=== PATIENT | male | born 1930 | race Caucasian/White ===

== ENCOUNTER → 2017-04-12 09:11 | Outpatient (CLI) | payer MEDICARE ==
[2017-04-12 09:48] LABS: BASOPHILS 0.5 % (0-2); EOSINOPHILS 5.5 % (0-7); HEMATOCRIT 40.2 % (42.0-54.0); HEMOGLOBIN 13.3 g/dL (13.5-17.5); IMMATURE GRANULOCYTES 0.2 % (0-5); LYMPHOCYTES 15.5 % (15-50); MCHC 33.1 g/dL (31.0-37.0); MCV 96.9 fL (80.0-100.0); MEAN PLATELET VOLUME 10.5 fL (7.4-10.4); MONOCYTES 9.7 % (2-11); NEUTROPHILS 68.6 % (40-80); PLATELET COUNT 233 10x3/uL (130-400); RBC 4.15 10x6/uL (4.20-6.10); RDW 13.2 % (11.5-14.5); WBC 5.7 10x3/uL (4.8-10.8)
[2017-04-12 10:17] LABS: ALBUMIN 3.4 g/dL (3.4-5.0); ANION GAP 11.7 mmol/L (8-16); BILIRUBIN - TOTAL 0.55 mg/dL (0.2-1.3); CARBON DIOXIDE 27.5 mmol/L (21.0-32.0); CHOL - HDL RATIO 3.2 ratio (2.3-4.9); CREATININE - SERUM 1.5 mg/dL (0.6-1.3); LDL-HDL RATIO 1.9 ratio (1.5-3.5); POTASSIUM - SERUM 4.2 mmol/L (3.5-5.1); PROTEIN - SERUM 6.8 g/dL (6.4-8.2); THYROID STIMULATING HORMONE 1.41 uIU/mL (0.36-3.74)
== END | disposition home or self-care (01) ==
LOC: D.LAB 09:11
PROVIDERS: Family Medicine
DX: D50.9 Iron deficiency anemia, unspecified (principal); I10 Essential (primary) hypertension; Z13.6 Encounter for screening for cardiovascular disorders

== ENCOUNTER → 2017-06-15 08:58 | Outpatient (CLI) | payer MEDICARE ==
[~2017-06-15] VITALS: Ht 175.3 cm; Wt 69.9 kg
[2017-06-15 15:00] VITALS: Ht 175.3 cm; Wt 69.9 kg
== END | disposition home or self-care (01) ==
LOC: D.FANS 08:58
DX: N18.3 Chronic kidney disease, stage 3 (moderate) (principal)

== ENCOUNTER → 2017-07-19 09:46 | Outpatient (CLI) | payer MEDICARE ==
[2017-06-15 15:00] VITALS: BMI 22.7
[2017-07-19 10:43] LABS: CREATININE - SERUM 1.4 mg/dL (0.6-1.3)
== END | disposition home or self-care (01) ==
LOC: D.CT 07-16 15:30
PROVIDERS: Family Medicine
DX: K59.09 Other constipation (principal)

== ENCOUNTER 2018-04-15 14:54 | Emergency (ER) | payer MEDICARE ==
[~2018-04-15] VITALS: Ht 175.3 cm; Wt 62.7 kg
[2018-04-15 14:57] VITALS: Ht 175.3 cm; Wt 62.7 kg
[2018-04-15] MEDS ORDERED: NORVASC5 MG PO (14:58)
[2018-04-15] MEDS ORDERED: CATAPRES0.1 MG PO (14:59)
[2018-04-15] MEDS ORDERED: CARDURA2 MG PO (14:59)
[2018-04-15] MEDS ORDERED: NEURONTIN 400400 MG PO (14:59)
[2018-04-15] MEDS ORDERED: VITAMIN B-150 MG PO (14:59)
[2018-04-15] MEDS ORDERED: ATIVAN1 MG PO (15:00)
[2018-04-15] MEDS ORDERED: MELATONIN 3 MG1 TAB PO (15:00)
[2018-04-15] MEDS ORDERED: LOVASTATIN20 MG PO (15:00)
[2018-04-15] MEDS ORDERED: OMEPRAZOLE20 M1 PO (15:01)
[2018-04-15] MEDS ORDERED: NITROSTAT0.4 MG SL (15:01)
[2018-04-15] MEDS ORDERED: PROBIOTIC1 EAC1 PO (15:01)
[2018-04-15] MEDS ORDERED: SLOW RELEASE I160 MG PO (15:01)
[2018-04-15] MEDS ORDERED: ALDACTONE25 MG PO (15:02)
[2018-04-15 15:28] LABS: BASOPHILS 0.9 % (0-2); EOSINOPHILS 2.7 % (0-7); HEMOGLOBIN 11.3 g/dL (13.5-17.5); IMMATURE GRANULOCYTES 0.2 % (0-5); LYMPHOCYTES 13.5 % (15-50); MCH 31.9 pg (26.0-34.0); MCHC 33.2 g/dL (31.0-37.0); MEAN PLATELET VOLUME 9.3 fL (7.4-10.4); MONOCYTES 12.6 % (2-11); NEUTROPHILS 70.1 % (40-80); PLATELET COUNT 200 10x3/uL (130-400); RBC 3.54 10x6/uL (4.20-6.10); RDW 13.3 % (11.5-14.5); WBC 5.6 10x3/uL (4.8-10.8)
[2018-04-15 15:52] LABS: APTT 27.3 SECONDS (22.8-39.4); INR 1.01 (0.85-1.17); PROTIME 12.9 SECONDS (11.6-15.0)
[2018-04-15 15:56] LABS: ALBUMIN 3.4 g/dL (3.4-5.0); BILIRUBIN - TOTAL 0.41 mg/dL (0.2-1.3); CARBON DIOXIDE 31.3 mmol/L (21.0-32.0); CREATININE - SERUM 1.2 mg/dL (0.6-1.3); POTASSIUM - SERUM 4.3 mmol/L (3.5-5.1); PROTEIN - SERUM 6.4 g/dL (6.4-8.2)
[2018-04-15 16:15] LABS: % SATURATION 26 % (15-55); IRON 65 ug/dl (35-150); TOTAL IRON BIND CAPACITY 250 ug/dl (260-445); UNSAT IRON BIND CAPACITY 185 ug/dl (150-375)
[2018-04-15 17:05] VITALS: BP 169/83
[2018-04-18 12:12] LABS: FOLATE (FOLIC ACID) - SERUM 18.1 ng/mL (>3.0)
== END 2018-04-15 17:09 | disposition home or self-care (01) ==
LOC: D.ER 14:54
PROVIDERS: Emergency Medicine
DX: D64.9 Anemia, unspecified (principal); I12.9 Hypertensive chronic kidney disease with stage 1 through stage 4 chronic kidney disease, or unspecified chronic kidney disease; N18.3 Chronic kidney disease, stage 3 (moderate); Z85.46 Personal history of malignant neoplasm of prostate

== ENCOUNTER 2018-09-16 08:31 | Observation (INO) | payer MEDICARE ==
[~2018-09-16] VITALS: Ht 175.3 cm; Wt 63.5 kg
--- NOTE | ~2018-09-16 | HP ---
PATIENT: NICHOLE DELGADO MEDICAL RECORD: [id number] ACCOUNT: [id number] LOCATION:D.MS [id number] : 30 ADMISSION DATE: 09/16/18 PCP: BOB DELUCA DO HISTORY AND PHYSICAL EXAMINATION DATE OF ADMISSION: 09/16/2018 CHIEF COMPLAINT: Constipation. HISTORY: This is an 87-year-old white male, who is followed by Dr. Deluca, who does not come into the hospital. He is complaining of constipation for the last 10 days. It really got worse in the last day or two. He has had some mild abdominal pain. He has had constipation issues for at least 3 years since he had a colonoscopy done at [facility]. He has had no nausea or vomiting. No fever or chills. No chest pain or shortness of breath. He takes several medicines to help with bowel movements and gives himself warm water enemas occasionally. Upon presentation into the Emergency Department, his potassium was low at 2.9. Rest of his lab looked okay. Acute abdominal series showed large amount of fecal material in the colon. He is admitted. PAST MEDICAL AND SURGICAL HISTORY: Hypertension, peripheral neuropathy, chronic kidney disease stage III, history of prostate cancer. DRUG ALLERGIES: None known. HABITS: No tobacco, alcohol, or drugs. SOCIAL HISTORY: He is and retired. HOME MEDICATIONS: Include amlodipine 5 mg once a day, thiamine 50 mg 3 days a week, Cardura 2 mg daily p.r.n. elevated blood pressure, gabapentin 400 mg at bedtime, lorazepam 1 mg at bedtime, lovastatin 20 mg once a day, melatonin 3 mg at bedtime, nitroglycerin 0.4 mg sublingually p.r.n. chest pain, omeprazole 20 mg twice a day, probiotic 2 tablets a day, ferrous sulfate 160 mg once a day, MiraLax 1 scoop in 8 ounces of fluids once a day. REVIEW OF SYSTEMS: GENERAL: No major weight changes. HEENT: No particular sinus or allergy problems. RESPIRATORY: No history of asthma or emphysema. CARDIAC: He has had some anginal symptoms in the past. GASTROINTESTINAL: History of constipation. He had an ulcer diagnosed a few years ago. GENITOURINARY: History of prostate cancer. MUSCULOSKELETAL: Some arthritic aches and pains. NEUROLOGIC: He has peripheral neuropathy. No migraines. No seizures. PSYCHIATRIC: No depression or melancholia. PHYSICAL EXAMINATION: VITAL SIGNS: Temperature is 97.3, pulse 68, respirations 20, blood pressure 152/71, O2 sat 99%. GENERAL: He does not appear in acute distress. He seems to be comfortable in a hospital bed. SKIN: Warm and dry. HEENT: Grossly within normal limits. HISTORY AND PHYSICAL [id number] NICHOLE DELGADO NECK: Supple. No JVD or bruit. HEART: Regular rate and rhythm without murmur. LUNGS: Clear. ABDOMEN: Soft. Mildly distended. No significant tenderness. No guarding, no rebound, no mass. EXTREMITIES: No edema. LABORATORY DATA: CBC with a white count of 6100, hemoglobin 13, hematocrit 39, normal differential. Urinalysis is normal. Basic metabolic panel is okay except potassium is 2.9. Liver functions were all normal. Troponin is normal. Amylase and lipase are both normal. Acute abdominal series showed large amount of fecal material. ASSESSMENT: 1. Constipation. 2. Hypokalemia. 3. Hypertension. PLAN: We will admit, give him fluids. He has had soapsuds enema in the ER, another one has been ordered. Given him some mag citrate. We will see how he does overnight to further recommendations as warranted. TRANSINT:[id number] Voice Confirmation ID: [id number] DOCUMENT ID: [id number] JASON WELLS MD CC: [id number] DICTATION DATE: 09/21/182319 BEHAVIORAL HEALTH SPECIALIST: 09/22/18 0043 DIS IN 09/17/18 [place] [id number] [place] [id number]
[~2018-09-16 08:31] MED LIST: ALDACTONE25 MG PO; ATIVAN1 MG PO; CARDURA2 MG PO; CATAPRES0.1 MG PO; LOVASTATIN20 MG PO; MELATONIN 3 MG1 TAB PO; NEURONTIN 400400 MG PO; NITROSTAT0.4 MG SL; NORVASC5 MG PO; OMEPRAZOLE20 M1 PO; PROBIOTIC1 EAC1 PO; SLOW RELEASE I160 MG PO; VITAMIN B-150 MG PO
[2018-09-16 09:32] LABS: ALBUMIN 3.2 g/dL (3.4-5.0); ALKALINE PHOSPHATASE 52 U/L (46-116); ALT (SGPT) 17 U/L (10-68); AMYLASE - SERUM 66 U/L (25-115); BASOPHILS 0.8 % (0-2); BILIRUBIN - TOTAL 0.59 mg/dL (0.2-1.3); CALC OSMOLALITY 276 mosm/kg (275-300); CALCIUM 8.8 mg/dL (8.5-10.1); CARBON DIOXIDE 32.3 mmol/L (21.0-32.0); CHLORIDE - SERUM 99 mmol/L (98-107); CREATININE - SERUM 1.3 mg/dL (0.6-1.3); EOSINOPHILS 5.4 % (0-7); GLUCOSE 108 mg/dL (74-106); HEMATOCRIT 39.2 % (42.0-54.0); IMMATURE GRANULOCYTES 0.2 % (0-5); LIPASE 164 U/L (73-393); LYMPHOCYTES 20.4 % (15-50); MCHC 33.2 g/dL (31.0-37.0); MCV 93.6 fL (80.0-100.0); MEAN PLATELET VOLUME 9.7 fL (7.4-10.4); MONOCYTES 9.1 % (2-11); NEUTROPHILS 64.1 % (40-80); PLATELET COUNT 216 10x3/uL (130-400); PROTEIN - SERUM 6.6 g/dL (6.4-8.2); RBC 4.19 10x6/uL (4.20-6.10); RDW 13.3 % (11.5-14.5); SODIUM 137 mmol/L (136-145); UREA NITROGEN 18 mg/dL (7-18); WBC 6.1 10x3/uL (4.8-10.8); eGFR NON AFRICAN AMERICAN 55 mL/min (90-120)
[2018-09-16 09:37] LABS: POTASSIUM - SERUM 2.9 mmol/L (3.5-5.1); TROPONIN-I < 0.017 ng/mL (0.000-0.060)
--- NOTE | 2018-09-16 09:38 | NUR ---
CRITICAL LOW POTASSIUM OF 2.9 CALLED BY [employer] TECH. NOTIFIED DR. MUÑOZ.
[2018-09-16 10:28] LABS: APPEARANCE CLEAR (CLEAR); BILIRUBIN NEGATIVE (NEGATIVE); COLOR YELLOW (YELLOW); GLUCOSE NEGATIVE (NEGATIVE); KETONE NEGATIVE (NEGATIVE); NITRITE NEGATIVE (NEGATIVE); PROTEIN NEGATIVE (NEGATIVE)
[2018-09-16 11:00] VITALS: BP 154/60
--- NOTE | 2018-09-16 11:31 | NUR ---
BLANKET PROVIDED TO PATIENT AT THIS TIME.
--- NOTE | 2018-09-16 13:40 | NUR ---
BEDSIDE COMMODE BROUGHT TO PATIENT'S BEDSIDE. BOWEL MOVEMENT PRESENT IN BEDSIDE COMMODE AT THIS TIME. PT IN NO ACUTE DISTRESS AT THIS TIME. WILL CONT TO MONITOR FOR CHANGES.
[2018-09-16 17:47] VITALS: BP 164/80; BMI 20.7
[2018-09-16 20:00] VITALS: BP 159/77
--- NOTE | 2018-09-16 20:30 | NUR ---
RECEIVED REPROT, ASSUMED CARE, A&O, DENIES NEEDS, NO S/S OF DISTRESS NOTED, CALL LIGHT IN REACH, BED LOWEST POSITION, IV INFUSING TO L AC PATENT, WILL CONTINUE POC
--- NOTE | 2018-09-16 20:50 | NUR ---
PT REFUSED MIDNIGHT VITALS STATED HE JUST WANTS LEFT ALONE
[2018-09-17 03:00] VITALS: BP 154/74
--- NOTE | 2018-09-17 04:30 | NUR ---
I have reviewed this patient and I concur with the Shift Assessment completed by the Licensed Practical Nurse today this shift.
[2018-09-17 06:37] LABS: BASOPHILS 0.8 % (0-2); EOSINOPHILS 8.1 % (0-7); HEMATOCRIT 35.7 % (42.0-54.0); HEMOGLOBIN 11.9 g/dL (13.5-17.5); IMMATURE GRANULOCYTES 0.2 % (0-5); LYMPHOCYTES 24.9 % (15-50); MCH 31.2 pg (26.0-34.0); MCHC 33.3 g/dL (31.0-37.0); MCV 93.7 fL (80.0-100.0); MONOCYTES 13.4 % (2-11); NEUTROPHILS 52.6 % (40-80); PLATELET COUNT 204 10x3/uL (130-400); RBC 3.81 10x6/uL (4.20-6.10); RDW 13.2 % (11.5-14.5); WBC 5.3 10x3/uL (4.8-10.8)
[2018-09-17 07:17] LABS: ANION GAP 9.1 mmol/L (8-16); CALCIUM 8.2 mg/dL (8.5-10.1); CARBON DIOXIDE 31.9 mmol/L (21.0-32.0); CREATININE - SERUM 1.1 mg/dL (0.6-1.3); MAGNESIUM - SERUM 2.2 mg/dL (1.8-2.4); PHOSPHOROUS 2.8 mg/dL (2.5-4.9)
[2018-09-17 09:07] VITALS: BP 154/68
[2018-09-17 10:34] VITALS: Ht 175.3 cm; Wt 63.5 kg
--- NOTE | 2018-09-17 10:44 | NUR ---
I have reviewed this patient and I concur with the Shift Assessment completed by the Licensed Practical Nurse today this shift.
--- NOTE | 2018-09-17 11:44 | NUR ---
FLEET ENEMA GIVEN PER ORDER. TOLERATED WELL. VERBALIZED UNDERSTANDING OF NEED FOR ENEMA. DENIES ANY CURRENT NEEDS OR DISCOMFORTS, BED LOWERED AND LOCKED, CALL LIGHT WITHIN REACH. CPOC
[2018-09-17] MEDS ORDERED: MIRALAX17 GM PO (13:14)
[2018-09-17 14:16] VITALS: BP 155/73
--- NOTE | 2018-09-17 15:47 | NUR ---
DISCHARGE INSTRUCTIONS GIVEN. VERBALIZES UNDERSTANDING. DISCONTINUED IV TO LEFT FOREARM, DENIES ANY CONCERNS OR QUESTIONS AT CURRENT TIME. TRANSPORTED OFF UNIT VIA WHEELCHAIR.
--- NOTE | 2018-09-19 16:57 | MORECARE ---
CASE MANAGEMENT DISCHARGE SUMMARY PATIENT: NICHOLE DELGADO UNIT: [id number] ADM DATE: 09/16/18 AGE: 87 : 30 SEX: M ROOM/BED: D.2235 AUTHOR: ANISH VILLAGRAN PHYSICIAN: REFERRING PHYSICIAN: JASON WELLS MD DATE OF SERVICE: 09/19/18 Discharge Plan Patient Name: NICHOLE DELGADO [facility] [facility] 1930 Planned Disposition: Anticipated Discharge Date: Discharge Date: 09/17/2018 Expected LOS: 0 Initial Reviewer: [email or web address] Initial Review Date: 09/19/2018 Generated: 09/19/18 5:57 pm Patient Name: NICHOLE DELGADO Page 91652 at 1657 All edits/amendments must be made on the electronic document DICTATION DATE: 09/19/181656 EMAIL MARKETER: DANIEL 09/19/181656 RPT#: [id number] DC DATE:09/17/18 STATUS: DIS IN [facility] [address] [place] [address] END OF REPORT
== END 2018-09-17 15:48 | disposition home or self-care (01) ==
LOC: D.ER 08:31 → D.MS 14:10 → OBSVTIME 14:10 → D.MS 09-17 15:48
PROVIDERS: Family Medicine; ADMIT Family Medicine; ATTEND Family Medicine
DX: K59.04 Chronic idiopathic constipation (principal); I12.9 Hypertensive chronic kidney disease with stage 1 through stage 4 chronic kidney disease, or unspecified chronic kidney disease; N18.3 Chronic kidney disease, stage 3 (moderate)

== ENCOUNTER 2018-10-21 12:23 | Emergency (ER) | payer MEDICARE ==
[~2018-10-21] VITALS: Ht 175.3 cm; Wt 65.9 kg
[~2018-10-21 12:23] MED LIST changes: +MIRALAX17 GM PO
[2018-10-21 12:25] VITALS: Ht 175.3 cm; Wt 65.9 kg
[2018-10-21 12:43] LABS: BASOPHILS 0.5 % (0-2); EOSINOPHILS 3.2 % (0-7); HEMATOCRIT 38.8 % (42.0-54.0); HEMOGLOBIN 13.2 g/dL (13.5-17.5); IMMATURE GRANULOCYTES 0.2 % (0-5); LYMPHOCYTES 17.6 % (15-50); MCV 93.9 fL (80.0-100.0); MEAN PLATELET VOLUME 9.5 fL (7.4-10.4); MONOCYTES 10.2 % (2-11); NEUTROPHILS 68.3 % (40-80); PLATELET COUNT 216 10x3/uL (130-400); RBC 4.13 10x6/uL (4.20-6.10); RDW 13.1 % (11.5-14.5); WBC 6.5 10x3/uL (4.8-10.8)
[2018-10-21 12:54] LABS: ALBUMIN 3.5 g/dL (3.4-5.0); ALKALINE PHOSPHATASE 46 U/L (46-116); ALT (SGPT) 22 U/L (10-68); BILIRUBIN - TOTAL 0.43 mg/dL (0.2-1.3); CALC OSMOLALITY 274 mosm/kg (275-300); CALCIUM 8.8 mg/dL (8.5-10.1); CHLORIDE - SERUM 101 mmol/L (98-107); CREATININE - SERUM 1.4 mg/dL (0.6-1.3); GLUCOSE 102 mg/dL (74-106); POTASSIUM - SERUM 3.3 mmol/L (3.5-5.1); PROTEIN - SERUM 6.6 g/dL (6.4-8.2); SODIUM 136 mmol/L (136-145); UREA NITROGEN 20 mg/dL (7-18); eGFR NON AFRICAN AMERICAN 51 mL/min (90-120)
[2018-10-21 13:01] LABS: APTT 28.5 SECONDS (22.8-39.4); INR 0.99 (0.85-1.17); PROTIME 12.6 SECONDS (11.6-15.0)
[2018-10-21 13:13] LABS: CREATINE KINASE 34 UL (21-232); MAGNESIUM - SERUM 2.3 mg/dL (1.8-2.4); THYROID STIMULATING HORMONE 1.73 uIU/mL (0.36-3.74); TROPONIN-I < 0.017 ng/mL (0.000-0.060)
[2018-10-21 13:34] LABS: APPEARANCE CLEAR (CLEAR); COLOR YELLOW (YELLOW)
[2018-10-21 13:35] LABS: BILIRUBIN NEGATIVE (NEGATIVE); GLUCOSE NEGATIVE (NEGATIVE); KETONE NEGATIVE (NEGATIVE); NITRITE NEGATIVE (NEGATIVE); PROTEIN NEGATIVE (NEGATIVE); UROBILINOGEN NORMAL (NORMAL)
[2018-10-21 15:20] VITALS: BP 177/75
== END 2018-10-21 15:21 | disposition home or self-care (01) ==
LOC: D.ER 12:23
PROVIDERS: Family Medicine
DX: E86.0 Dehydration (principal)

== ENCOUNTER 2019-02-19 13:44 | Emergency (ER) | payer MEDICARE ==
[~2019-02-19] VITALS: Ht 175.3 cm; Wt 68.2 kg
[2019-02-19 13:49] VITALS: Ht 175.3 cm; Wt 68.2 kg
[2019-02-19] MEDS ORDERED: MODURETIC 5/501 TAB PO (13:52)
[2019-02-19] MEDS ORDERED: COLACE100 MG PO (13:53)
[2019-02-19 14:49] VITALS: BP 132/68
== END 2019-02-19 14:51 | disposition home or self-care (01) ==
LOC: D.ER 13:44
DX: K59.00 Constipation, unspecified (principal)

== ENCOUNTER → 2019-04-24 09:49 | Outpatient (CLI) | payer MEDICARE ==
[2019-02-19 13:49] VITALS: BMI 22.2
[~2019-04-24 09:49] MED LIST changes: +ALENDRONATE SOD10 MG PO; +COLACE100 MG PO; +K-TAB10 MEQ PO; +MODURETIC 5/501 TAB PO; +VITAMIN B-12500 MCG PO
== END | disposition home or self-care (01) ==
LOC: D.HCCARDIO 09:30
PROVIDERS: ATTEND Internal Medicine Cardiovascular Disease
DX: R06.02 Shortness of breath (principal)

== ENCOUNTER 2019-05-03 11:47 | Outpatient (CLI) | payer MEDICARE ==
[~2019-05-03] VITALS: Ht 175.3 cm; Wt 68.2 kg
--- NOTE | ~2019-05-03 | HEMODYNAMI ---
PATIENT:NICHOLE DELGADO MEDICAL RECORD: [id number] : 30 [facility]ATION:[facility] ADMISSION DATE: 05/03/19 Generatedon:05/03/201914:35 Patient name: NICHOLE DELGADO Patient #: [id number] : 1930 Date of study: 05/03/2019 Page: Of Hemodynamic Procedure Report Patient Data Patient Demographics Procedure consent was obtained First Name: NICHOLE Gender: Male Last Name: SANDY : 1930 Middle Initial: WALTER Age: 88 year(s) Patient #: [id number] Race: Unknown SSN: [id number] Additional ID: [id number] Contact details Address: [address] [place] [address] [address] State: [place] City: [place] Zip code: [address] Past Medical History Allergies: No known allergies Admission Admission Data Admission Date: 05/03/2019 Admission Time: 11:47 Arrival Date: 05/03/2019 Arrival Time: 0:00 Insurance Payor: Medicare [facility] #: [id number] Height (in.): 68.9 BSA: 1.83 (m2) Height (cm.): 175 BMI: 22.2 (kg/m2) Weight (lbs.): 149.92 Weight (kg.): 68 Lab Results Lab Result Date: 05/03/2019 Lab Result Time: 0:00 Biochemistry Name Units Result Min Max BUN mg/dl 16 --(---*)-- 7 18 Creatinine mg/dl 1.1 --(--*-)-- 0.6 1.3 eGFR ml/min 67.17991 *-(----)-- 90 120 NONAFRICAN CBC Name Units Result Min Max Hemoglobin g/dl 13.1 -*(----)-- 13.5 17.5 Procedure Procedure Types Cath Procedure Diagnostic Procedure LHC LH w/Coronaries Sedation Charges Moderate Sedation up to 30 minutes Procedure Description Procedure Date Procedure Date: 05/03/2019 Procedure Start Time: 14:08 Procedure End Time: 14:33 Procedure Staff Name Function Mingo Aly MD Performing Physician Grecia Aguirre RT Monitor Renae Michelle RN Nurse Qi Conley RT Scrub Jeannine Cohen RT Scrub Procedure Data Cath Procedure Fluoroscopy Diagnostic fluoroscopy Total fluoroscopy Time: 4.2 time: 4.2 min min Diagnostic fluoroscopy Total fluoroscopy dose: 690 dose: 690 mGy mGy Contrast Material Contrast Material Type Amount (ml) Isovue 300 98 Entry Location Entry Primary Successful Side Size Upsize Upsize Entry Closure Almendarez ccessful Closure Location (Fr) 1 (Fr) 2 (Fr) Remarks Device Remarks Radial Right 6 Fr Mechanical artery Short Compression Femoral Right 5 Fr Exoseal artery Estimated blood loss: 10 ml Diagnostic catheters Device Type Used For End Catheter Placement DIAGNOSTIC Luís 110cm Procedure 5Fr catheter ([id number]) MULTIPACK JL 4.0 5Fr Procedure catheter MULTIPACK 3DRC 5Fr Procedure catheter MULTIPACK Pigtail 5 Fr Ventriculography catheter Procedure Complications No complications Procedure Medications Medication Administration Route Dosage Oxygen etCO2 Nasal cannula 2 l/min Lidocaine 2% added to field 20 Heparin Flush Bag added to field 2 bags (1000units/500ml NS) 0.9% NaCl I.V. 100 ml/hr Versed I.V. 1 mg Fentanyl I.V. 50 mcg Versed I.V. 1 mg Fentanyl I.V. 50 mcg Radial Cocktail I.A. 1 syringe (Verapamil 2mg/Nitro 400mcg/Heparin 1500units) Hemodynamics Rest BSA: 1.83 (m2) HGB: 13.1 (g/dl) O2 Consumption: Estimated: 202.09 (ml/min) O2 Co nsumption indexed: Estimated:110.43 (ml/min/m) Heart Rate: 63 (bpm) Pressure Samples Time Site Value (mmHg) Purpose Heart Use Rate(bpm) 14:23 AO 134/6(48) Snapshot 66 Snapshots Pre Cath Intra NCS Post Cath Vital Signs Time Heart Resp SPO2 etCO2 NIBP (mmHg) Rhythm Pain Sedation Rate (ipm) (%) (mmHg) Status Level (bpm) 13:54:42 57 12 99 35.2 195/87(160) NSR 0 (11) 10(A) , No pain 13:59:15 63 17 98 36.7 189/80(157) NSR 0 (11) 10(A) , No pain 14:03:47 65 19 97 25.5 168/72(119) NSR 0 (11) 9(A) , No pain 14:08:12 60 15 97 42.7 157/75(109) NSR 0 (11) 9(A) , No pain 14:12:32 65 15 96 40.5 116/50(89) NSR 0 (11) 9(A) , No pain 14:16:42 64 17 96 39 118/60(89) NSR 0 (11) 9(A) , No pain 14:20:49 62 18 96 39.7 128/66(102) NSR 0 (11) 9(A) , No pain 14:24:59 68 19 96 39.7 134/68(97) NSR 0 (11) 9(A) , No pain 14:29:13 64 19 96 38.2 132/68(99) NSR 0 (11) 10(A) , No pain 14:33:29 64 11 97 35.9 139/60(114) NSR 0 (11) 10(A) , No pain Medications Time Medication Route Dose Verified Delivered Reason Notes Effectiveness by by 13:53:56 Oxygen etCO2 2 l/min Mingo Buffie used for Nasal Jermain Michelle RN procedure cannula 13:54:02 Lidocaine 2% added 20ml Mingo Mingo for local to vial Jermain Aly MD anesthetic field 13:54:09 Heparin Flush added 2 bags Mingo Mingo used for Bag to Jermain Aly MD procedure (1000units/500ml field NS) 13:54:16 0.9% NaCl I.V. 100 Mingo Buffie Per ml/hr Jermain Michelle RN physician 13:57:03 Versed I.V. 1 mg Mingo Buffie for sedation Jermain Michelle RN 13:57:09 Fentanyl I.V. 50 mcg Mingo Buffie for sedation Jermain Michelle RN 14:06:49 Versed I.V. 1 mg Mingo Buffie for sedation Jermain Michelle RN 14:06:52 Fentanyl I.V. 50 mcg Mingo Buffie for sedation Jermain Michelle RN 14:09:45 Radial Cocktail I.A. 1 Mingo Mingo for (Verapamil syringe Jermain Aly MD vasodilation 2mg/Nitro 400mcg/Heparin 1500units) Procedure Log Time Note 13:29:33 Arrival Date: 05/03/2019 12:00:00 AM 13:29:55 Insurance Payor : Medicare 13:30:03 Patient Height : 68.9 inches 13:30:06 Patient Weight : 149.92 lbs 13:31:14 Lab Result : Hemoglobin 13.1 g/dl 13:31:14 Lab Result : eGFR NONAFRICAN 67.60404 ml/min 13:31:14 Lab Result : BUN 16 mg/dl 13:31:14 Lab Result : Creatinine 1.1 mg/dl 13:31:20 Diagnostic Cath Status : Elective 13:32:07 Procedure Status Elective Heart Cath (OP). 13:32:10 Renae Michelle RN sent for patient. Start room use. 13:32:11 Time tracking: Regular hours (M-F 7:00 - 5:00) 13:32:15 Plan of Care:Hemodynamics will remain stable., Cardiac rhythm will remain stable., Comfort level will be maintained., Respiratory function will remain adequate., Patient/ family verbilizes understanding of procedure., Procedure tolerated without complication., Recovers from procedure without complications.. 13:32:26 Fire Safety Assessment: A--An alcohol-based skin anteseptic being used preoperatively., C--Open oxygen or nitrous oxide is being used., D--An ESU, laser, or fiber-optic light is being used. 13:32:34 2) 60-89 Mildly reduced kidney function, and other findings (as for stage 1) point to kidney disease. 13:33:15 Maximum allowable contrast dose (3.7 X eGFR X 0.75)185 ml. 13:33:57 H&P Date Dictated: 04/14/2019 Within 30 days and on chart.. 13:34:00 Pre-procedure instructions explained to patient. 13:42:17 Family in waiting room. 13:42:18 Patient NPO since Midnight. 13:42:28 Patient allergic to No known allergies 13:42:32 Is the patient allergic to Iodine/contrast media? No. 13:42:33 Was the patient premedicated? Yes 13:52:09 Patient received from Pre/Post Procedure Room to CCL 2 Alert and oriented. Tansferred to table in Supine position. 13:52:21 Signed procedure consent form obtained from patient. 13:52:22 Warm blankets applied, and bryant hugger turned on for patient comfort. 13:52:23 Correct patient and procedure confirmed by team. 13:52:24 ECG and BP/O2 sat monitors applied to patient. 13:52:24 Vital chart was started 13:52:27 Baseline sample Acquired. 13:52:31 Full Disclosure recording started 13:52:38 Is patient on blood thinner?No 13:52:41 Patient diabetic? No. 13:52:45 Snore? No 13:52:46 Sleep apnea? No 13:53:00 Sticks out tongue? Yes 13:53:20 Dentures? No ? 13:53:29 Patient pain scale 0/10 SOB. 13:53:38 IV patent on arrival in left forearm with 0.9% NaCl at [facility]. 13:53:43 Lab results completed and on chart. 13:53:56 Oxygen 2 l/min etCO2 Nasal cannula was administered by Renae Michelle RN; used for procedure; Verbal order read back and verified. 13:54:02 Lidocaine 2% 20ml vial added to field was administered by Mingo Aly MD; for local anesthetic; Verbal order read back and verified. 13:54:09 Heparin Flush Bag (1000units/500ml NS) 2 bags added to field was administered by Mingo Aly MD; used for procedure; Verbal order read back and verified. 13:54:16 0.9% NaCl 100 ml/hr I.V. was administered by Renae Michelle RN; Per physician; Verbal order read back and verified. 13:54:36 Stress Test: yes; abnormal inferior and lateral 13:54:40 Risk of Mortality: 1.3 13:54:43 Risk of blood transfusion: .4 13:54:47 Risk of AZAR: 2.7 13:54:52 Right Radial & Right Groin area was prepped with chlora-prep and draped in sterile fashion 13:55:55 Alarms reviewed by R. N. 13:55:55 Sharps counted by scrub and verified by R.N. 13:55:56 Physician paged 13:56:01 Physician arrived 13:56:02 --------ALL STOP TIME OUT------ 13:56:06 Final Timeout: patient, procedure, and site verified with staff and physician. All members of the team are in agreement. 13:56:13 Right Radial & Right Groin site verified by team. 13:57:03 Versed 1 mg I.V. was administered by Renae Michelle RN; for sedation; Verbal order read back and verified. 13:57:06 Physical assessment completed. ASA score P 3 - A patient with severe systemic disease as per Mingo Aly MD. 13:57:09 Fentanyl 50 mcg I.V. was administered by Renae Michelle RN; for sedation; Verbal order read back and verified. 13:57:14 Sedation plan: IV Moderate Sedation Medication:Versed, Fentanyl 13:58:23 Use device set Radial Dx or PCI 13:58:29 ACIST Syringe (09303) opened to sterile field. 13:58:29 Medline Cath Pack ([id number]) opened to sterile field. 13:58:29 Bag Decanter (2002S) opened to sterile field. 13:58:30 ACIST Hand Control (02247) opened to sterile field. 13:58:30 ACIST Manifold (21816) opened to sterile field. 13:58:34 MBrace Wrist Support ([id number]) opened to sterile field. 13:58:35 NEEDLE Cook 21G 4cm Radial (L48507) opened to sterile field. 13:58:37 EMERALD Guide Wire (094-256) opened to sterile field. 13:58:42 SHEATH 6FR RAIN (6632699) opened to sterile field. 14:06:49 Versed 1 mg I.V. was administered by Renae Michelle RN; for sedation; Verbal order read back and verified. 14:06:52 Fentanyl 50 mcg I.V. was administered by Renae Michelle RN; for sedation; Verbal order read back and verified. 14:07:12 Procedure started. 14:07:38 Zero performed for pressure channel P1 14:08:08 Local anesthetic to right radial artery with Lidocaine 2% by Mingo Aly MD.INITIAL ACCESS ONLY 14:09:18 A 6 Fr Short sheath was inserted into the Right Radial artery 14:09:33 A DIAGNOSTIC Luís 110cm 5Fr catheter (403363) was advanced over the wire and used for Procedure. 14:09:37 Zero performed for pressure channel P1 14:09:42 Zero performed for pressure channel P1 14:09:45 Radial Cocktail (Verapamil 2mg/Nitro 400mcg/Heparin 1500units) 1 syringe I.A. was administered by Mingo Aly MD; for vasodilation; Verbal order read back and verified. 14:09:47 Zero performed for pressure channel P1 14:13:43 unable to advance wire through radial artery 14:13:47 SHEATH 5FR [place] (ZZW092) opened to sterile field. 14:13:58 Local anesthetic to right femoral artery with Lidocaine 2% by Mingo Aly MD.ADDITIONAL ACCESS 14:14:14 A 5 Fr sheath was inserted into the Right Femoral artery 14:14:58 DIAGNOSTIC Multipack 5Fr catheter set (TV6974) opened to sterile field. 14:15:28 A MULTIPACK JL 4.0 5Fr catheter was advanced over the wire and used for Procedure. 14:16:33 LCA angiography performed. 14:19:34 Catheter removed. 14:19:56 A MULTIPACK 3DRC 5Fr catheter was advanced over the wire and used for Procedure. 14:21:29 RCA angiography performed. 14:21:32 Catheter removed. 14:21:42 A MULTIPACK Pigtail 5 Fr catheter was advanced over the wire and used for Ventriculography. 14:23:55 EF : 50 % 14:24:53 Aortic Root visualized 14:26:41 Catheter removed. 14:27:04 EXOSEAL 5Fr (EX500) opened to sterile field. 14:29:07 Sheath removed intact; hemostasis achieved with Exoseal to the Right Femoral artery. 14:29:18 Sheath removed intact; hemostasis achieved with Mechanical Compression to the Right Radial artery. 14:29:28 ZEPHYR REGULAR TR BAND (942890) opened to sterile field. 14:29:30 Tegaderm 4 x 4 (1626W) opened to sterile field. 14:30:04 Procedure ended.(Physican Out) 14:30:16 Fluoroscopy time 04.20 minutes. 14:30:25 Fluoroscopy dose: 690 mGy 14:30:25 Flurop Dose total: 690 14:30:46 Dose Area Product 41883 mGy/cm. 14:31:02 Contrast amount:Isovue 300 98ml. 14:31:05 Maximum allowable dose exceeded? No. 14:31:09 Sharps counted by scrub and verified by R.N. 14:31:16 [place] band inflated with 10cc of air. 14:31:18 Insertion/operative site no bleeding no hematoma. 14:31:23 Post-op/insertion site Right Femoral artery dressed using a 4 x 4 and Tegaderm. 14:31:29 Post Procedure Pulses reassessed and unchanged 14:31:35 Post-procedure physical assessment completed. ASA score P 2 - A patient with mild systemic disease as per Mingo Aly MD. 14:31:38 Post procedure rhythm: unchanged. 14:31:46 Estimated blood loss: 10 ml 14:32:02 Post procedure instruction explained to patient.Patient verbalizes understanding. 14:32:29 Procedure type changed to Cath procedure, Diagnostic procedure, LHC, LHC w/Coronaries, Sedation Charges, Moderate Sedation up to 30 minutes 14:32:30 Procedure and supply charges have been captured, reviewed, submitted and are correct. 14:32:59 Procedure Complication : No complications 14:33:02 Vital chart was stopped 14:33:06 Operative report dictated upon procedure completion. 14:33:07 See physician's report for complete and final results. 14:33:12 Report given to Pre/Post Procedure Room. 14:33:16 Patient transfered to Pre/Post Procedure Room with Stretcher. 14:33:18 Procedure ended. 14:33:18 Full Disclosure recording stopped 14:33:25 End room use (Document Last) 14:33:47 End room use (Document Last) Device Usage Item Name Manufacture Quantity Catalog Hospital Part Current Minima l Lot# / Number Charge Number Stock Stock Serial# Code ACIST Acist 1 14240 166135 020481 [id number] 20 Syringe Medical (55556) Systems Inc Medline Medline 1 [id number] 978158 50625 577702 5 Cath Pack ([id number]) Bag Microtek 1 2001S 936538 48270 144828 5 Decanter Medical Inc. () ACIST Hand Acist 1 53589 926649 097396 034530 5 Control Medical (92304) Systems Inc ACIST Acist 1 94560 196989 793286 133603 5 Manifold Medical (93354) Systems Inc MBrace Advanced 1 140-0250-00 939759 85675 760622 5 Wrist Vascular Support Dynamics ([id number]) NEEDLE Care IT 1 K36729 278419 670589 202946 5 21G 4cm Radial (D37226) EMERALD Cardinal 1 502-879 691240 401789 478227 5 Guide Wire Health (502455) SHEATH 6FR Cardinal 1 3557172 075428 0404448 549583 5 [facility] (1891748) DIAGNOSTIC Terumo 1 40-5023 558226 586702 321105 5 Luís 110cm 5Fr catheter (802017) SHEATH 5FR Terumo 1 ETR811 485645 417515 364545 5 [place] (HYQ940) DIAGNOSTIC Cardinal 1 ZF3296 039997 48433 764135 30 Multipack Health 5Fr catheter set (XQ3929) MULTIPACK Cardinal 1 500275 5 JL 4.0 5Fr Health catheter MULTIPACK Cardinal 1 421924 5 3DRC 5Fr Health catheter MULTIPACK Cardinal 1 610339 5 Pigtail 5 Health Fr catheter EXOSEAL 5Fr Cardinal 1 EX500 573922 111038 906259 10 (EX500) Health ZEPHYR Cardinal 1 698790 520023 9417869 794780 5 REGULAR TR Health BAND (899984) Tegaderm 4 3M 1 1626W 801951 597212 084047 5 x 4 (1626W) Signature Audit [place] Stage Time Signature Unsigned Intra-Procedure 05/03/2019 Grecia Aguirre 2:33:47 PM RT(R) Intra-Procedure 05/03/2019 Renae Michelle RN 2:34:30 PM Intra-Procedure 05/03/2019 Mingo Aly MD 2:35:21 PM Signatures Performing Physician : Signature : Mingo Aly MD Date : Time : Monitor : Grecia Aguirre Signature : RT Date : Time : Nurse : Renae Michelle RN Signature : Date : Time : [address] [place] [address]
[~2019-05-03 11:47] MED LIST changes: -ALENDRONATE SOD10 MG PO; -K-TAB10 MEQ PO; -VITAMIN B-12500 MCG PO
[2019-05-03] MEDS ORDERED: ALENDRONATE SOD10 MG PO (12:05)
[2019-05-03] MEDS ORDERED: K-TAB10 MEQ PO (12:05)
[2019-05-03] MEDS ORDERED: VITAMIN B-12500 MCG PO (12:06)
[2019-05-03 12:20] VITALS: BP 180/82; Ht 175.3 cm; Wt 68.2 kg
[2019-05-03 12:40] LABS: BASOPHILS 0.8 % (0-2); EOSINOPHILS 2.5 % (0-7); HEMATOCRIT 39.5 % (42.0-54.0); HEMOGLOBIN 13.1 g/dL (13.5-17.5); IMMATURE GRANULOCYTES 0.2 % (0-5); LYMPHOCYTES 13.9 % (15-50); MCH 31.6 pg (26.0-34.0); MCHC 33.2 g/dL (31.0-37.0); MCV 95.2 fL (80.0-100.0); MEAN PLATELET VOLUME 10.2 fL (7.4-10.4); MONOCYTES 9.2 % (2-11); NEUTROPHILS 73.4 % (40-80); PLATELET COUNT 250 10x3/uL (130-400); RBC 4.15 10x6/uL (4.20-6.10); WBC 6.4 10x3/uL (4.8-10.8)
[2019-05-03 12:44] LABS: ANION GAP 10.5 mmol/L (8-16); CALCIUM 8.7 mg/dL (8.5-10.1); CARBON DIOXIDE 28.2 mmol/L (21.0-32.0); CHOL - HDL RATIO 2.7 ratio (2.3-4.9); CREATININE - SERUM 1.1 mg/dL (0.6-1.3); LDL-HDL RATIO 1.5 ratio (1.5-3.5); POTASSIUM - SERUM 3.7 mmol/L (3.5-5.1)
--- NOTE | 2019-05-03 14:45 | NUR ---
PT RECEIVED VIA STRECTHER FROM THERMO PROCESSOR FOR RECOVERY. PT AWAKE BUT DROWSY. PT DENIES CHEST PAIN OR DISCOMFORT. PT PLACED ON CARDIAC MONITORS AND O2 AT 2L/NC. HR SB RATE 59, BP 167/74, RR 10 SAT 100. ZYPHER BAND AND IMMOBILIZER TO R WRIST AFTER UNSUCCEFUL ATTEMP AT ACCESS. SMALL HEMATOMA NOTED ON UPPER WRIST, PRESSURE HELD FOR 3-5 MIN W POSITIVE RESULTS. R GROIN 2 5FR EXOCELE, DRESSING CDI NO BLEEDING OR HEMATOMA NOTED. LEG AND ARM PINK AND WARM. CAP REFILL BRISK, PEDAL PULSES PALPABLE. IV PATENT INFUSING VIA ORDERS. CALL LIGHT IN REACH, AT BEDSIDE.
--- NOTE | 2019-05-03 15:15 | NUR ---
PT RESTING W/O COMPLAINTS. 300CC CLEAR YELLOW URINE EMPTIED FROM URINAL. ZBAND IN PLACE, DRESSING REMAINS CDI NO BLEEDING OR HEMATOMA NOTED. R GROIN DRESSING CDI NO BLEEDING OR SWELLING NOTED. VSS. TOLERATING PO FLUIDS, REMAINS AT BEDSIDE. CALL LIGHT IN REACH
--- NOTE | 2019-05-03 16:00 | NUR ---
3 ADD'L CC AIR REMOVED FROM Z BAND. NO BLEEDING OR HEMATOMA NOTED. R GROIN SOFT, NO BLEEDING OR SWELLING NOTED. EXTREMITIES REMAIN PINK AND WARM. HR 64, BP 179/73, RR 15. PT TOLERATING SANDWICH AND DRINK W/O NAUSEA. 300 CC CLEAR YELLOW URINE EMPTIED FROM URINAL. CALL LIGHT IN REACH, PT DENIES NEEDS
--- NOTE | 2019-05-03 16:21 | NUR ---
DISCHARGE INSTRUCTIONS REVIEWED W PT AND , BOTH VERBALIZED UNDERSTANDING.
--- NOTE | 2019-05-03 16:30 | NUR ---
IV REMOVED W CATH INTACT, MONITORS AND O2 REMOVED. DR WINN IN ROOM DISCUSSED W PT AND PLAN OF CARE AND PROCEDURE RESULTS. PT UP TO DRESS FOR DISCHARGE
--- NOTE | 2019-05-03 16:45 | NUR ---
ZBAND AND REMAINING AIR REMOVED. NO BLEEDING OR SWELLING NOTED. 2X2 AND TEGADERM DRESSING APPLIED. PT D/C VIA WC TO WAITING IN PRIVATE VEHICLE. PT HAD ALL BELONGINGS AND DISCHARGE PAPERWORK.
== END 2019-05-03 16:45 | disposition home or self-care (01) ==
LOC: D.CATH 11:47
PROVIDERS: ATTEND Internal Medicine Cardiovascular Disease
DX: I25.119 Atherosclerotic heart disease of native coronary artery with unspecified angina pectoris (principal); R94.30 Abnormal result of cardiovascular function study, unspecified; I35.1 Nonrheumatic aortic (valve) insufficiency

== ENCOUNTER 2019-08-31 19:38 | Observation (INO) | payer MEDICARE ==
[~2019-08-31] VITALS: Ht 175.3 cm; Wt 67.6 kg
[~2019-08-31 19:38] MED LIST changes: +ALENDRONATE SOD10 MG PO; +AMIODARONE HCL200 MG PO; +ASPIRIN81 MG PO; +COZAAR50 MG PO; +FUROSEMIDE20 MG PO; +HYDROCODON-ACE1 EAC7 PO; +K-TAB10 MEQ PO; +LIPITOR20 MG PO; +SEROQUEL25 MG PO; +VITAMIN B-12500 MCG PO; +ZOFRAN ODT4 MG/UDTAB PO
[2019-08-31 20:00] VITALS: BP 159/90
[2019-08-31 20:05] LABS: BASOPHILS 0.4 % (0-2); EOSINOPHILS 2.1 % (0-7); HEMATOCRIT 36.5 % (42.0-54.0); HEMOGLOBIN 11.7 g/dL (13.5-17.5); IMMATURE GRANULOCYTES 0.3 % (0-5); LYMPHOCYTES 15.8 % (15-50); MCH 29.7 pg (26.0-34.0); MCHC 32.1 g/dL (31.0-37.0); MCV 92.6 fL (80.0-100.0); MEAN PLATELET VOLUME 9.7 fL (7.4-10.4); NEUTROPHILS 72.4 % (40-80); PLATELET COUNT 283 10x3/uL (130-400); RBC 3.94 10x6/uL (4.20-6.10); RDW 15.9 % (11.5-14.5); WBC 7.5 10x3/uL (4.8-10.8)
[2019-08-31 20:13] LABS: BILIRUBIN NEGATIVE (NEGATIVE); GLUCOSE NEGATIVE (NEGATIVE); KETONE NEGATIVE (NEGATIVE); NITRITE NEGATIVE (NEGATIVE); SPECIFIC GRAVITY 1.015 (1.005-1.020); UROBILINOGEN NORMAL (NORMAL)
[2019-08-31 20:28] LABS: CALC OSMOLALITY 280 mosm/kg (275-300); CALCIUM 8.5 mg/dL (8.5-10.1); CARBON DIOXIDE 28.9 mmol/L (21.0-32.0); CHLORIDE - SERUM 102 mmol/L (98-107); GLUCOSE 131 mg/dL (74-106); POTASSIUM - SERUM 3.5 mmol/L (3.5-5.1); SODIUM 138 mmol/L (136-145); UREA NITROGEN 20 mg/dL (7-18); eGFR NON AFRICAN AMERICAN 75 mL/min (90-120)
[2019-08-31 20:50] LABS: ALBUMIN 2.8 g/dL (3.4-5.0); ALKALINE PHOSPHATASE 74 U/L (30-120); ALT (SGPT) 17 U/L (10-68); CKMB 2.1 U/L (0.0-3.6); CREATINE KINASE 33 UL (21-232); TROPONIN-I 0.061 ng/mL (0.000-0.060)
[2019-08-31 21:00] VITALS: BP 151/89
[2019-08-31] MEDS ORDERED: PROBIOTIC (21:06)
--- NOTE | 2019-08-31 21:08 | NUR ---
PT PROVIDED WITH BLANKET. NO ACUTE DISTRESS NOTED. WILL CONTINUE TO MONITOR
[2019-08-31 22:00] VITALS: BP 160/91
[2019-08-31 22:14] LABS: CKMB 1.8 U/L (0.0-3.6); CREATINE KINASE 30 UL (21-232)
[2019-08-31 22:16] LABS: TROPONIN-I 0.068 ng/mL (0.000-0.060)
[2019-08-31 23:00] VITALS: BP 129/84
--- NOTE | 2019-08-31 23:30 | NUR ---
ARIVED ROM ER VIA STRETCHER NO CP CO HTN TO BED LOW AND LOCKED AND NEEDS SEEN TO
[2019-09-01 02:50] VITALS: BP 158/91; BMI 22.0
[2019-09-01 04:00] VITALS: BP 157/85
[2019-09-01 06:57] LABS: APTT 29.7 SECONDS (22.8-39.4); INR 1.01 (0.85-1.17); PROTIME 13.3 SECONDS (11.6-15.0)
[2019-09-01 07:01] LABS: BASOPHILS 0.7 % (0-2); EOSINOPHILS 4.8 % (0-7); HEMATOCRIT 35.1 % (42.0-54.0); HEMOGLOBIN 11.1 g/dL (13.5-17.5); IMMATURE GRANULOCYTES 0.2 % (0-5); MCH 29.4 pg (26.0-34.0); MCHC 31.6 g/dL (31.0-37.0); MCV 93.1 fL (80.0-100.0); MEAN PLATELET VOLUME 10.1 fL (7.4-10.4); MONOCYTES 12.6 % (2-11); NEUTROPHILS 61.7 % (40-80); PLATELET COUNT 258 10x3/uL (130-400); RBC 3.77 10x6/uL (4.20-6.10); WBC 6.1 10x3/uL (4.8-10.8)
--- NOTE | 2019-09-01 07:10 | NUR ---
REPORT RECEIVED FROM PRIVATE EQUITY ANALYST AND PATIENT CARE ASSUMED. PATIENT LAYING IN BED ON BACK AWAKE, ALERT AND ORIENTED X 4. PATIENT IS STABLE AND VSS. PATIENT DENIES ANY NEEDS BUT DID ASST PATIENT TO CALL HIS . WILL CONTINUE WITH PLAN OF CARE.
[2019-09-01 07:13] LABS: ALBUMIN 2.7 g/dL (3.4-5.0); ALKALINE PHOSPHATASE 70 U/L (30-120); ALT (SGPT) 18 U/L (10-68); BILIRUBIN - TOTAL 0.44 mg/dL (0.2-1.3); CALC OSMOLALITY 276 mosm/kg (275-300); CALCIUM 8.3 mg/dL (8.5-10.1); CARBON DIOXIDE 26.4 mmol/L (21.0-32.0); CHLORIDE - SERUM 103 mmol/L (98-107); CKMB 1.8 U/L (0.0-3.6); CREATINE KINASE 25 UL (21-232); CREATININE - SERUM 0.8 mg/dL (0.6-1.3); GLUCOSE 110 mg/dL (74-106); PHOSPHOROUS 3.2 mg/dL (2.5-4.9); POTASSIUM - SERUM 3.2 mmol/L (3.5-5.1); PRO BNP 2773 pg/mL (0-450); PROTEIN - SERUM 5.3 g/dL (6.4-8.2); SODIUM 137 mmol/L (136-145); UREA NITROGEN 18 mg/dL (7-18); eGFR NON AFRICAN AMERICAN > 90 mL/min (90-120)
[2019-09-01 07:14] LABS: TROPONIN-I 0.065 ng/mL (0.000-0.060)
[2019-09-01 08:42] VITALS: Ht 175.3 cm; Wt 67.6 kg
[2019-09-01 10:19] VITALS: BP 165/90
[2019-09-01 12:59] VITALS: BP 148/85
[2019-09-01] MEDS ORDERED: NORVASC2.5 MG PO (13:09)
== END 2019-09-01 16:17 | disposition home or self-care (01) ==
LOC: D.ER 19:38 → D.M2 22:25 → OBSVTIME 22:25 → D.M2 09-01 16:17
PROVIDERS: Family Medicine; ADMIT Emergency Medicine; ATTEND Emergency Medicine
DX: I12.9 Hypertensive chronic kidney disease with stage 1 through stage 4 chronic kidney disease, or unspecified chronic kidney disease (principal); N18.9 Chronic kidney disease, unspecified; D64.9 Anemia, unspecified; E78.5 Hyperlipidemia, unspecified; F41.9 Anxiety disorder, unspecified; K59.00 Constipation, unspecified; Z85.46 Personal history of malignant neoplasm of prostate; Z95.1 Presence of aortocoronary bypass graft; I25.10 Atherosclerotic heart disease of native coronary artery without angina pectoris

== ENCOUNTER 2020-08-20 13:57 | Emergency (ER) | payer MEDICARE ==
[~2020-08-20] VITALS: Ht 175.3 cm; Wt 70.0 kg
[~2020-08-20 13:57] MED LIST changes: +NORVASC2.5 MG PO; +PROBIOTIC
[2020-08-20 14:10] VITALS: Ht 175.3 cm; Wt 70.0 kg
[2020-08-20 16:14] VITALS: BP 149/83
== END 2020-08-20 16:14 | disposition home or self-care (01) ==
LOC: D.ER 13:57
DX: K59.00 Constipation, unspecified (principal); R10.9 Unspecified abdominal pain; I10 Essential (primary) hypertension